=== PATIENT | male | born 1935 | race Caucasian/White ===

== ENCOUNTER 2019-07-19 11:31 | Inpatient (IN) | payer MEDICARE ==
[2019-07-19 12:23] LABS: ABS Basophils 0.1 10^3/ul (0-0.2); ABS Lymphocytes 0.4 10^3/ul (1.0-4.8); ABS Monocytes 1.1 10^3/ul (0-0.8); ABS Neutrophils 8.4 10^3/ul (1.5-7.7); Eosinophil % 0.2 %; Hematocrit 39 % (42-52); Hemoglobin 13.1 g/dL (14.0-18.0); Lymphocyte % 4.1 %; Mean Corpuscular HGB Conc 34 g/dL (31-36); Mean Corpuscular Hemoglobin 32 pg (27-31); Mean Corpuscular Volume 94 fL (80-94); Mean Platelet Volume 8.5 fL (7.4-10.4); Platelet Count 222 10^3/uL (150-450); Red Blood Count 4.08 10^6 /uL (4.18-5.48); Red Cell Distribution Width 14 % (10-15)
--- NOTE | 2019-07-19 12:40 | ED ---
Complex/Multi-Sys Presentation - HPI Summary HPI Summary: Patient is an 84 y/o M presenting to [facility] with family for back rash, loss of appetite, confusion, difficulty with memory, balance issues, and tremors. Family reports that the patient has had a rash to his back over the past two weeks. He was evaluated by dermatology and placed on cream. Rash has been improved since. However, the patient is also reported to have been exhibiting confusion, memory loss, loss of appetite, balance issues, and worsened hand tremors. Tremors worsened over the past few days. Patient is alert and oriented x3 in the room, but the family states that the patient has been having difficulty remembering phone numbers that he typically has no trouble remembering. No Hx of memory issues noted, no Hx of UTI, PNA, or infections reported. Family also states that the patient experienced a fall a few days ago. They state that the patient had complaints of back pain but in the room patient denies any back pain presently. Minimal diarrhea is also reported. PMHx of cardiac disease is reported. No cigarette, alcohol, and substance usage reported. Home medications and allergies are reviewed. Home Medications Medication Instructions Recorded Confirmed Type Flaxseed Oil 1 cap PO BID 01/13/16 02/02/16 History Isosorbide Dinitrate TAB* [Isordil 20 mg PO BID 01/13/16 02/02/16 History TAB*] Legatrin 1 tab PO BEDTIME 01/13/16 02/02/16 History Multivitamin [Multivitamins] 1 cap PO QAM 01/13/16 02/02/16 History Zolpidem Tartrate [Ambien] 0.25 mg PO BEDTIME 01/13/16 02/02/16 History Docusate CAP* [Colace Cap*] 100 mg PO BID #60 cap 01/29/16 02/02/16 Rx oxyCODONE/Acetamin 5/325 MG* 1 tab PO Q3H PRN #90 tab MDD 10 01/29/16 02/02/16 Rx [Percocet 5/325 TAB*] Apixaban* [Eliquis*] 5 mg PO BID #60 tab 02/03/16 Rx Apixaban* [Eliquis*] 10 mg PO BID #13 tab 02/03/16 Rx cephALEXin [Keflex] 500 mg PO Q6HR #28 cap 02/03/16 Rx - History Of Current Complaint Chief Complaint: EDGeneral Time Seen by Provider: 07/19/19 11:46 Hx Obtained From: Patient Onset/Duration: Still Present Timing: Constant Location: Pain At: - family reports patient had pain at back, patient denies back pain Associated Signs And Symptoms: Positive: Confusion, Diarrhea, Back Pain, Decreased Oral Intake, Other - positive - difficulty with memory, balance issues , termors, fall - Allergies/Home Medications Allergies/Adverse Reactions: Allergies Allergy/AdvReac Type Severity Reaction Status Date / Time Latex, Natural Rubber Allergy Mild Rash Verified 07/19/19 14:08 MANY FRUITS Allergy Severe SWELLING/PRICKLY Uncoded 07/19/19 11:39 THROAT & RUNNY NOSE SEASONAL ALLERGIES Allergy Intermediate Runny Nose Uncoded 07/19/19 11:39 Home Medications: Home Medications Isosorbide Dinitrate TAB* [Isordil TAB*] 20 mg PO BID 01/13/16 [History Confirmed 07/19/19] Legatrin 1 tab PO BEDTIME 01/13/16 [History Confirmed 07/19/19] Multivitamin [Multivitamins] 1 cap PO DAILY 01/13/16 [History Confirmed 07/19/19 ] Zolpidem Tartrate [Ambien] 10 mg PO BEDTIME MDD 1 tab 01/13/16 [History Confirmed 07/19/19] Fexofenadine (NF) [Janny 180 (NF)] 180 mg PO DAILY 07/19/19 [History Confirmed 07/19/19] NIFEdipine ER TAB* [Procardia Xl TAB*] 90 mg PO DAILY 07/19/19 [History Confirmed 07/19/19] Naproxen TAB* [Naprosyn 250 mg TAB*] 500 mg PO BID 07/19/19 [History Confirmed 07/19/19] Primidone 50 mg TAB (*) [Mysoline 250 mg TAB (*)] 150 mg PO DAILY 07/19/19 [ History Confirmed 07/19/19] PMH/Surg Hx/FS Hx/Imm Hx Endocrine/Hematology History: Denies: Hx Diabetes Cardiovascular History: Reports: Hx Coronary Artery Disease, Hx Hypertension, Hx Valvular Heart Disease Denies: Hx Pacemaker/ICD, Hx Rheumatic Fever Respiratory History: Denies: Hx Asthma, Hx Chronic Obstructive Pulmonary Disease (COPD) History: Denies: Hx Renal Disease Musculoskeletal History: Reports: Hx Arthritis Sensory History: Reports: Hx Contacts or Glasses Denies: Hx Hearing Aid Opthamlomology History: Reports: Hx Contacts or Glasses Neurological History: Reports: Hx Nerve Disease - ESSENTIAL TREMORS Psychiatric History: Denies: Hx Panic Disorder - Surgical History Surgery Procedure, Year, and Place: Rt KNEE - REPAIR TORN LIGAMENT [facility]. Lt SHOULDER - REPAIR [facility]. HERNIA - REPAIR [facility]. ARTHROSCOPIC RIGHT KNEE [facility] Hx Anesthesia Reactions: No Infectious Disease History: No Infectious Disease History: Denies: Traveled Outside the [place] in Last 30 Days - Family History Known Family History: Positive: Cardiac Disease - Social History Alcohol Use: None Substance Use Type: Reports: None Smoking Status (MU): Never Smoked Tobacco Review of Systems Constitutional: Other - positive - tremors Gastrointestinal: Other - positive - loss of appetite Positive: Diarrhea Musculoskeletal: Other - positive - fall, back pain Positive: Rash Neurological/Mental Status: Other - positive - confusion, difficulty memory, balance issues All Other Systems Reviewed And Are Negative: Yes Physical Exam - Summary Physical Exam Summary: Constitutional: Well-developed, Well-nourished, Alert. (-) Distressed Skin: Warm, Dry HENT: Normocephalic; Atraumatic Eyes: Conjunctiva normal Neck: Musculoskeletal ROM normal neck. (-) JVD, (-) Stridor, (-) Nuchal rigidity Cardio: Rhythm regular, rate normal, Heart sounds normal; Intact distal pulses; Radial pulses are 2+ and symmetric. (-) Murmur Pulmonary/Chest wall: Effort normal. (-) Respiratory distress, (-) Wheezes, (-) Rales Abd: Soft, (-) tenderness, (-) Distension, (-) Guarding, (-) Rebound Musculoskeletal: (+) Paraspinal Cervical Spine Tenderness (-) Edema Lymph: (-) Cervical adenopathy Neuro: Alert, Oriented x3 Psych: Mood and affect Normal Triage Information Reviewed: Yes Vital Signs On Initial Exam: Initial Vitals Temp Pulse Resp BP Pulse Ox 100.6 F 80 16 132/93 94 07/19/19 11:33 07/19/19 11:33 07/19/19 11:33 07/19/19 11:33 07/19/19 11:33 Vital Signs Reviewed: Yes - [place] Coma Scale Best Eye Response: 4 - Spontaneous Best Motor Response: 6 - Obeys Commands Best Verbal Response: 5 - Oriented Coma Scale Total: 15 Procedures - Sedation Patient Received Moderate/Deep Sedation with Procedure: No Diagnostics - Vital Signs Vital Signs Temp Pulse Resp BP Pulse Ox 07/19/19 11:33 100.6 F 80 16 132/93 94 - Laboratory Result Diagrams: 07/19/19 12:13 07/19/19 12:13 Lab Statement: Any lab studies that have been ordered have been reviewed, and results considered in the medical decision making process. - Radiology PELVIS X-RAY Radiology Interpretation Completed By: Radiologist Summary of Radiographic Findings: PELVIS X-RAY IMPRESSION: NO EVIDENCE FOR FRACTURE, IF THE PATIENT'S SYMPTOMS PERSIST RECOMMEND. FOLLOW-UP IMAGING. THIS REPORT WAS REVIEWED BY ED PHYSICIAN. CXR Radiology Interpretation Completed By: Radiologist Summary of Radiographic Findings: CXR IMPRESSION: COPD. THERE IS PATCHY AIRSPACE DISEASE OF THE RIGHT LUNG BASE. THIS REPORT WAS REVIEWED BY ED PHYSICIAN. - CT BRAIN CT CT Interpretation Completed By: Radiologist Summary of CT Findings: BRAIN CT IMPRESSION: 1. Left posterior scalp hematoma with an intact subjacent calvarium. 2. No acute intracranial abnormality. 3. Mild chronic small vessel ischemic disease is likely. 4. Mild cerebral volume loss. THIS REPORT WAS REVIEWED BY ED PHYSICIAN. - EKG 1315 Cardiac Rate: NL - rate of 80 BPM EKG Rhythm: Sinus Rhythm Summary of EKG Findings: EKG showed NSR with rate of 80 BPM, T-wave inversion in lead III, EKG with significant artifact. ED physician has reviewed and interpreted this EKG. Complex Multi-Symp Course/Dx Course Of Treatment: 84 y/o M p/w weakness, fatigue and headache. - PE well appearing, bilateral rhonchi. No cspine TTP. - check a head CT given fall. We' ll also check labs to workup infectious causes. Chest x-ray shows a right lower lobe pneumonia, given Zithromax and ceftriaxone. Urinalysis pending. We' ll also send flu. Given patient's weakness and age will admit for pneumonia. - Diagnoses Provider Diagnoses: PNA (pneumonia), Weakness - Physician Notifications Discussed Care Of Patient With: Germain Blackwell Time Discussed With Above Provider: 13:40 Instructed by Provider To: Other - Patient's case was discussed with Dr. Blackwell, Dr. Blackwell accepts for admission Discharge ED - Sign-Out/Discharge Documenting (check all that apply): Patient Departure - admit - Discharge Plan Condition: Stable Disposition: ADMITTED TO [facility] Referrals: Luca Sanford MD [Primary Care Provider] - - Billing Disposition and Condition Condition: STABLE Disposition: Admitted to [facility] - Attestation Statements Document Initiated by Petersonibe: Yes Documenting Scribe: SANDIE PECK Provider For Whom Scribe is Documenting (Include Credential): CARRINGTON JIMÉNEZ MD Scribe Attestation: SANDIE Moreno, scribed for CARRINGTON JIMÉNEZ MD on 07/19/19 at 1430. Scribe Documentation Reviewed: Yes Provider Attestation: The documentation as recorded by the SANDIE lim accurately reflects the service I personally performed and the decisions made by CARRINGTON ramirez MD Status of Scribe Document: Viewed
[2019-07-19 12:51] LABS: ALT 23 U/L (7-52); AST 31 U/L (13-39); Albumin 3.7 g/dL (3.2-5.2); Alkaline Phosphatase 78 U/L (34-104); Anion Gap 6 mmol/L (2-11); BUN/Creatinine Ratio 24.3 (8-20); Blood Urea Nitrogen 26 mg/dL (6-24); CO2 Carbon Dioxide 30 mmol/L (22-32); Calcium 9.2 mg/dL (8.6-10.3); Chloride 98 mmol/L (101-111); EGFR African American 79.7 (>60); EGFR Non-African American 65.8 (>60); Globulin 3.6 g/dL (2-4); Glucose 116 mg/dL (70-100); Magnesium 2.4 mg/dL (1.9-2.7); Potassium 4.3 mmol/L (3.5-5.0); Sodium 134 mmol/L (135-145); Total Protein 7.3 g/dL (6.4-8.9)
[2019-07-19 12:55] LABS: Troponin I 0.03 ng/mL (<0.03)
[2019-07-19] MEDS ORDERED: cefTRIAXone(*) 1 GM in NS 0.9% 50 ML* 50 ML IVPB ONE (13:23)
[2019-07-19] MEDS ORDERED: Azithromycin 500 mg/250 ml NS 500 MG/250 ML BAG IVPB ONE (13:23)
[2019-07-19] MEDS ORDERED: Acetaminophen TAB* 325 MG PO ONE (13:23)
[2019-07-19 14:30] LABS: Influenza A Molecular Negative (Negative); Influenza B Molecular Negative (Negative)
[2019-07-19 14:51] LABS: Urine Appearance Clear; Urine Bilirubin Negative (Negative); Urine Blood 1+ (Negative); Urine Color Yellow; Urine Glucose Negative (Negative); Urine Ketones Trace (Negative); Urine Nitrite Negative (Negative); Urine Protein Negative (Negative); Urine Urobilinogen Negative (Negative)
[2019-07-19 14:58] LABS: Urine Bacteria Absent (Absent); Urine Red Blood Cell 1+(3-5/hpf) (Absent); Urine Squamous Epithelial Cell Present (Absent); Urine White Blood Cell Trace(0-5/hpf) (Absent)
[2019-07-19] MEDS: Azithromycin 500 mg/250 ml NS 500 MG/250 ML BAG IVPB SCH (15:55)
[2019-07-19] MEDS: Enoxaparin(*) 40 MG/0.4 ML SYR SUBCUT SCH ×2 (15:57→16:04)
--- NOTE | 2019-07-19 19:56 | HP ---
CC: Dr. Sanford; Dr. Richey ADMISSION HISTORY AND PHYSICAL: DATE OF ADMISSION: 07/19/19 CHIEF COMPLAINT: Weakness. HISTORY OF PRESENT ILLNESS: Mr. Jones is an 84-year-old man with history of coronary artery disea se, who comes in with family reporting 1 to 2 weeks of weakness and difficulty with balance. They mas ve also noted memory lapses, but he has no history of dementia. At times, he appears confused. He d enies any cough, shortness of breath, or chest pain. He had a fall approximately 10 days ago, outdo ors getting wood, under unclear circumstances, no one really witnessed this and he could not tell whe n this happened. He reported fall and head injury to the ER doctor and this led to a head CT and x-r ays of the bilateral hips and pelvis. The patient has had myalgias in the last several days and chills. He also had a rash on his back abo ut a week ago, it was itchy and bothering him. He saw a live source operator and was given a topical moistu rizer cream and this has been resolving. He denies being told he had shingles. He does have some lo w back pain, which is chronic. PAST MEDICAL HISTORY: Includes hypertension, coronary artery disease demonstrated on cardiac cathete rization in 1998 with no intervention. He has insomnia, essential tremor and history of DVT, right c naomi postop. PAST SURGICAL HISTORY: In December 2015, he had a right total knee replacement, he also had inguinal h ernia repair in the past. MEDICATIONS ON ADMISSION: 1. Janny 180 mg p.o. daily. 2. Isosorbide dinitrate 20 mg p.o. b.i.d. 3. Legatrin 1 tab p.o. q.p.m. 4. Multivitamin 1 tab p.o. daily. 5. Naproxen 500 mg p.o. b.i.d. 6. Nifedipine ER 90 mg p.o. daily. 7. Primidone 150 mg p.o. daily. 8. Zolpidem 10 mg p.o. q.h.s. ALLERGIES: SIMVASTATIN and LATEX. FAMILY HISTORY: Notable for mother of old age. Father at his 60s of heart disease. He mas s 2 sisters who are okay, alive and well. 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 He is . He has 2 sons. He has never smoked. He drinks alcohol rarely. No recreational drugs. REVIEW OF SYSTEMS: The patient denies any anorexia, weight loss. The patient denies any chest pain or palpitations. The patient denies any cough, hemoptysis, or shortness of breath. The patient does admit to some leg cramps at night, which have been quite bothersome. Otherwise 14-point review of s ystem is negative other than above mentioned in the HPI. PHYSICAL EXAMINATION GENERAL: He is alert, in no acute distress. VITAL SIGNS: Temperature is 38.2, pulse 80, respirations 16, blood pressure 132/93, O2 sat 94% on ro om air. HEENT: Head is normocephalic atraumatic. Sclerae anicteric. Pupils are equal, round and reactive t o light and accommodation. Oropharynx is moist. No lesions. NECK: No JVD. No carotid bruit. No thyromegaly. LUNGS: Clear to auscultation and percussion in the upper field, but there are rales at the bases presley aterally. HEART: Regular rate and rhythm without murmurs or gallops. ABDOMEN: Soft, nontender, positive bowel sounds. No hepatosplenomegaly. EXTREMITIES: No peripheral edema. Dorsalis pedis pulses are 1+ bilaterally. NEUROLOGIC: Cranial nerves II through XII were intact. Motor strength is 5/5 throughout. Deep tend on reflexes are symmetric. He is alert and oriented x3, but he has vague responses to some questions about his recent history. DIAGNOSTIC STUDIES/LAB DATA: Sodium 134, potassium 4.3, chloride 98, bicarb 30, BUN 26, creatinine 1.07, glucose 116, calcium 9.2, magnesium 3.4, albumin 3.7. AST is 31, ALT 23, bilirubin 0.5. White count is 10.0, hemoglobin 13.1, hematocrit 39%, platelets are 222. Influenza swab is negative. Tro ponin is 0.03, ammonia is 41. Chest x-ray shows a right middle lobe infiltrate. Head CT is negative for infarct or hemorrhage. Pe lvic x-ray is negative for fracture with some osteoarthritis of course. ASSESSMENT AND PLAN: A 84-year-old man presenting with weakness and fever with infiltrate on chest x -ray. He appears to have community-acquired pneumonia. He will be admitted to the hospital due to h is weakness and falls and treated for community-acquired pneumonia and we will also cover atypicals i ncluding mycoplasma. He can be started on ceftriaxone and azithromycin and we will narrow coverage if possible Weakness, this is likely due to pneumonia, not stroke. We will have physical therapy assessment and will expect him to improve in strength as his infectious disease is treated. Coronary artery disease appears stable, although his troponin is mildly elevated. He will be monitore d on telemetry and will have him repeat troponins. Code status: DNR/DNI. We will look for his MOLST form and update that if necessary. DVT prophylaxis: He is at high risk given his history of DVT in his age. He will be on subcutaneous Lovenox while he is here in the hospital. [id number]/[facility] #: [id number]
[2019-07-19 20:46] LABS: Troponin I 0.03 ng/mL (<0.03)
[2019-07-19] MEDS: Isosorbide Dinitrate TAB* 20 MG PO SCH (20:52)
[2019-07-19] MEDS: Naproxen TAB* 250 MG PO SCH (20:52)
[2019-07-19] MEDS: Zolpidem TAB* 10 MG PO SCH (20:52)
[2019-07-20 01:01] LABS: Troponin I 0.03 ng/mL (<0.03)
[2019-07-20 06:20] LABS: ABS Eosinophils 0.1 10^3/ul (0-0.6); ABS Lymphocytes 0.5 10^3/ul (1.0-4.8); ABS Monocytes 1.2 10^3/ul (0-0.8); Hematocrit 36 % (42-52); Hemoglobin 12.3 g/dL (14.0-18.0); Lymphocyte % 5.1 %; Mean Corpuscular HGB Conc 35 g/dL (31-36); Mean Corpuscular Hemoglobin 32 pg (27-31); Mean Corpuscular Volume 94 fL (80-94); Mean Platelet Volume 8.7 fL (7.4-10.4); Platelet Count 210 10^3/uL (150-450); Red Blood Count 3.78 10^6 /uL (4.18-5.48); Red Cell Distribution Width 14 % (10-15); White Blood Count 9.8 10^3/uL (3.5-10.8)
[2019-07-20 06:36] LABS: BUN/Creatinine Ratio 24.3 (8-20); Calcium 8.3 mg/dL (8.6-10.3); EGFR African American 79.7 (>60); EGFR Non-African American 65.8 (>60)
[2019-07-20] MEDS: Isosorbide Dinitrate TAB* 20 MG PO SCH ×2 (08:53→22:19)
[2019-07-20] MEDS: Naproxen TAB* 250 MG PO SCH ×2 (08:53→22:03)
[2019-07-20] MEDS: Primidone 50 mg TAB (*) PO SCH (08:53)
[2019-07-20] MEDS: NIFEdipine ER TAB* 30 MG PO SCH (08:54)
--- NOTE | 2019-07-20 12:20 | PN ---
Subjective Date of Service: 07/20/19 Interval History: Patient denies dyspnea, cough. He did not remember that I told him about pneumonia yesterday. He has walked to bathroom w/ assist. He still cannot clearly remember recent fall. He now says he fell 6-8 weeks ago , injured RT thigh for 5-6 weeks. Then fell again more recently. Family History: Unchanged from Admission Social History: Unchanged from Admission Past Medical History: Unchanged from Admission Objective Active Medications: Enoxaparin Sodium (Lovenox(*)) 40 mg SUBCUT Q24H [facility] Last Admin: 07/19/19 16:04 Dose: Not Given Azithromycin (Zithromax 500 Mg/250 Ml) 500 mg in 250 mls @ 250 mls/hr IVPB Q24H [facility] Last Admin: 07/19/19 15:55 Dose: 250 mls/hr Ceftriaxone Sodium 1,000 mg/ (Sodium Chloride) 50 mls @ 200 mls/hr IVPB Q24H [facility] Isosorbide Dinitrate (Isordil Tab*) 20 mg PO BID [facility] Last Admin: 07/20/19 08:53 Dose: 20 mg Naproxen (Naprosyn Tab*) 500 mg PO BID [facility] Last Admin: 07/20/19 08:53 Dose: 500 mg Nifedipine (Procardia Xl Tab*) 90 mg PO DAILY [facility] Last Admin: 07/20/19 08:54 Dose: 90 mg Primidone (Mysoline 250 Mg Tab (*)) 150 mg PO DAILY [facility] Last Admin: 07/20/19 08:53 Dose: 150 mg Zolpidem Tartrate (Ambien Tab*) 10 mg PO BEDTIME [facility] Last Admin: 07/19/19 20:52 Dose: 10 mg Vital Signs - 8 hr 07/20/19 07/20/19 07/20/19 07:15 08:00 11:15 Temperature 36.9 C 37.3 C Pulse Rate 63 78 Respiratory 24 18 24 Rate Blood Pressure 125/66 116/56 (mmHg) O2 Sat by Pulse 93 91 Oximetry Oxygen Devices in Use Now: None Appearance: alert, no distress Eyes: No Scleral Icterus Ears/Nose/Mouth/Throat: NL Teeth, Lips, Gums Neck: NL Appearance and Movements; NL JVP Respiratory: Symmetrical Chest Expansion and Respiratory Effort, - - rales RT base Cardiovascular: RRR, - - 1/6 systolic murmur Abdominal: NL Sounds; No Tenderness; No Distention Neurological: Alert and Oriented x 3 Lines/Tubes/Other Access: Clean, Dry and Intact Peripheral IV Nutrition: Taking PO's Result Diagrams: 07/20/19 05:14 07/20/19 05:14 Additional Lab and Data: Laboratory Tests 07/19/19 07/19/19 07/20/19 17:16 20:16 00:33 Troponin I 0.02 0.03 H* 0.03 H* Microbiology and Other Data: Microbiology 07/19/19 14:30 Nasal Screen MRSA (PCR) - Final Nasal Mrsa Detected Assess/Plan/Problems-Billing Assessment: 84 year old w/ falls, delirium, appears due to RLL pneumonia - Patient Problems (1) Lobar pneumonia, unspecified organism Current Visit: Yes Status: Acute Priority: High Code(s): J18.1 - LOBAR PNEUMONIA, UNSPECIFIED ORGANISM SNOMED Code(s): 073797434 Comment: -Had few symptoms of pneumonia, difficult to follow clinically -Continue azithromycin, ceftriaxone -Checking urine legionella and pneumococcus Ag. (2) Repeated falls Current Visit: Yes Status: Acute Priority: Medium Code(s): R29.6 - REPEATED FALLS SNOMED Code(s): 521544145 Comment: -Physical therapy assessment pending -Suspect weakness due to pneumonia (3) Delirium due to another medical condition Current Visit: Yes Status: Acute Priority: Medium Code(s): F05 - DELIRIUM DUE TO KNOWN PHYSIOLOGICAL CONDITION SNOMED Code(s): 6311377 Comment: -At this age, may have element of dementia unmasked -Treatment of infection should improve mental status- -Appears hypoactive not agitated Status and Disposition: inpatient
[2019-07-20 12:57] LABS: TSH (Thyroid Stimulating Horm) 1.74 mcIU/mL (0.34-5.60)
[2019-07-20 12:59] LABS: Free T4 1.11 ng/dL (0.61-1.12)
[2019-07-20] MEDS: cefTRIAXone VIAL(*) 1,000 MG in NS 0.9% 50 ML* 50 ML IVPB SCH (13:41)
[2019-07-20] MEDS: Enoxaparin(*) 40 MG/0.4 ML SYR SUBCUT SCH (13:42)
[2019-07-20] MEDS: Azithromycin 500 mg/250 ml NS 500 MG/250 ML BAG IVPB SCH (15:02)
[2019-07-20] MEDS: Zolpidem TAB* 10 MG PO SCH (22:04)
[2019-07-21] MEDS: Hydrocortisone 1% CREAM* 30 GM TUBE TOPICAL SCH ×2 (08:12→20:10)
[2019-07-21] MEDS: Naproxen TAB* 250 MG PO SCH ×2 (08:12→20:09)
[2019-07-21] MEDS: NIFEdipine ER TAB* 30 MG PO SCH (08:12)
[2019-07-21] MEDS: Primidone 50 mg TAB (*) PO SCH (08:12)
[2019-07-21] MEDS: Isosorbide Dinitrate TAB* 20 MG PO SCH ×2 (08:13→20:10)
--- NOTE | 2019-07-21 09:07 | PN ---
Subjective Date of Service: 07/21/19 Interval History: Mr. Jones still does not recall that he is here for pneumonia. Thinks it is for "an itching problem," but has trouble elaborating on his itchiness. When I remind him that he has pneumonia he recognizes that. He has no other complaints . Family History: Unchanged from Admission Social History: Unchanged from Admission Past Medical History: Unchanged from Admission Objective Active Medications: Enoxaparin Sodium (Lovenox(*)) 40 mg SUBCUT Q24H [facility] Last Admin: 07/20/19 13:42 Dose: Not Given Hydrocortisone (Hytone Cream 1%*) 1 applic TOPICAL BID [facility] Last Admin: 07/21/19 08:12 Dose: 1 applic Azithromycin (Zithromax 500 Mg/250 Ml) 500 mg in 250 mls @ 250 mls/hr IVPB Q24H [facility] Last Admin: 07/20/19 15:02 Dose: 250 mls/hr Ceftriaxone Sodium 1,000 mg/ (Sodium Chloride) 50 mls @ 200 mls/hr IVPB Q24H [facility] Last Admin: 07/20/19 13:41 Dose: 200 mls/hr Isosorbide Dinitrate (Isordil Tab*) 20 mg PO BID [facility] Last Admin: 07/21/19 08:13 Dose: 20 mg Naproxen (Naprosyn Tab*) 500 mg PO BID [facility] Last Admin: 07/21/19 08:12 Dose: 500 mg Nifedipine (Procardia Xl Tab*) 90 mg PO DAILY [facility] Last Admin: 07/21/19 08:12 Dose: 90 mg Primidone (Mysoline 250 Mg Tab (*)) 150 mg PO DAILY [facility] Last Admin: 07/21/19 08:12 Dose: 150 mg Zolpidem Tartrate (Ambien Tab*) 10 mg PO BEDTIME [facility] Last Admin: 07/20/19 22:04 Dose: 10 mg Vital Signs - 8 hr 07/21/19 07/21/19 03:15 07:15 Temperature 98.3 F 98.2 F Pulse Rate 67 68 Respiratory 20 24 Rate Blood Pressure 120/63 139/70 (mmHg) O2 Sat by Pulse 90 92 Oximetry Oxygen Devices in Use Now: None Appearance: alert, well appearing, eating breakfast Eyes: No Scleral Icterus Ears/Nose/Mouth/Throat: NL Teeth, Lips, Gums, Mucous Membranes Moist Neck: NL Appearance and Movements; NL JVP Respiratory: Symmetrical Chest Expansion and Respiratory Effort, Clear to Auscultation, - - few rhonchi in the right base Cardiovascular: NL Sounds; No Murmurs; No JVD, RRR Abdominal: NL Sounds; No Tenderness; No Distention Lymphatic: No Cervical Adenopathy Extremities: No Edema Skin: No Rash or Ulcers Neurological: NL Muscle Strength and Tone Result Diagrams: 07/20/19 05:14 07/20/19 05:14 Additional Lab and Data: Laboratory Tests 07/19/19 07/19/19 07/20/19 17:16 20:16 00:33 Troponin I 0.02 0.03 H* 0.03 H* Microbiology and Other Data: Microbiology 07/19/19 14:30 Nasal Screen MRSA (PCR) - Final Nasal Mrsa Detected Assess/Plan/Problems-Billing Assessment: 84 year old w/ falls, delirium, appears due to RLL pneumonia - Patient Problems (1) Lobar pneumonia, unspecified organism Current Visit: Yes Status: Acute Priority: High Code(s): J18.1 - LOBAR PNEUMONIA, UNSPECIFIED ORGANISM SNOMED Code(s): 061028832 Comment: -Had few symptoms of pneumonia, difficult to follow clinically -Continue azithromycin, ceftriaxone (day 3) -Legionella and S. pneumo antigens are negative (2) Delirium due to another medical condition Current Visit: Yes Status: Acute Priority: Medium Code(s): F05 - DELIRIUM DUE TO KNOWN PHYSIOLOGICAL CONDITION SNOMED Code(s): 7128193 Comment: -At this age, may have element of dementia unmasked -Treatment of infection should improve mental status- -Appears hypoactive not agitated -I am wary of the zolpidem he is on as a home med; will try to cut in half tonight (3) Repeated falls Current Visit: Yes Status: Acute Priority: Medium Code(s): R29.6 - REPEATED FALLS SNOMED Code(s): 319826925 Comment: -Physical therapy assessment pending -Suspect weakness due to pneumonia (4) Hypertension Current Visit: No Status: Chronic Code(s): I10 - ESSENTIAL (PRIMARY) HYPERTENSION SNOMED Code(s): 91948293 Comment: continue nifedipine and imdur Status and Disposition: inpatient, awaiting PT consult for dispo planning
[2019-07-21] MEDS: cefTRIAXone VIAL(*) 1,000 MG in NS 0.9% 50 ML* 50 ML IVPB SCH (15:07)
[2019-07-21] MEDS: Enoxaparin(*) 40 MG/0.4 ML SYR SUBCUT SCH (15:07)
[2019-07-21] MEDS: Azithromycin 500 mg/250 ml NS 500 MG/250 ML BAG IVPB SCH (15:50)
[2019-07-21] MEDS: Zolpidem TAB* 10 MG PO SCH (21:44)
[2019-07-21 22:44] LABS: BUN/Creatinine Ratio 27.9 (8-20); Calcium 8.2 mg/dL (8.6-10.3); EGFR African American 102.5 (>60); EGFR Non-African American 84.7 (>60); Magnesium 2.3 mg/dL (1.9-2.7); Potassium 3.9 mmol/L (3.5-5.0)
[2019-07-22] MEDS: Primidone 50 mg TAB (*) PO SCH (10:54)
[2019-07-22] MEDS: Isosorbide Dinitrate TAB* 20 MG PO SCH ×2 (10:54→19:57)
[2019-07-22] MEDS: Naproxen TAB* 250 MG PO SCH ×2 (10:54→19:57)
[2019-07-22] MEDS: NIFEdipine ER TAB* 30 MG PO SCH (10:54)
[2019-07-22] MEDS: Hydrocortisone 1% CREAM* 30 GM TUBE TOPICAL SCH ×2 (11:25→21:54)
--- NOTE | 2019-07-22 12:21 | PN ---
Subjective Date of Service: 07/22/19 Interval History: Pt is seen with his son by the bedside. Pt requests multiple times to go home today, son is not encouraging him to do so, but agrees that pt could go home tomorrow to stay with his and "another woman who lives with them ". Family History: Unchanged from Admission Social History: Unchanged from Admission Past Medical History: Unchanged from Admission Objective Active Medications: Enoxaparin Sodium (Lovenox(*)) 40 mg SUBCUT Q24H [facility] Last Admin: 07/21/19 15:07 Dose: 40 mg Hydrocortisone (Hytone Cream 1%*) 1 applic TOPICAL BID [facility] Last Admin: 07/22/19 11:25 Dose: 1 applic Azithromycin (Zithromax 500 Mg/250 Ml) 500 mg in 250 mls @ 250 mls/hr IVPB Q24H [facility] Last Admin: 07/21/19 15:50 Dose: 250 mls/hr Ceftriaxone Sodium 1,000 mg/ (Sodium Chloride) 50 mls @ 200 mls/hr IVPB Q24H [facility] Last Admin: 07/21/19 15:07 Dose: 200 mls/hr Isosorbide Dinitrate (Isordil Tab*) 20 mg PO BID [facility] Last Admin: 07/22/19 10:54 Dose: 20 mg Naproxen (Naprosyn Tab*) 500 mg PO BID [facility] Last Admin: 07/22/19 10:54 Dose: 500 mg Nifedipine (Procardia Xl Tab*) 90 mg PO DAILY [facility] Last Admin: 07/22/19 10:54 Dose: 90 mg Primidone (Mysoline 250 Mg Tab (*)) 150 mg PO DAILY [facility] Last Admin: 07/22/19 10:54 Dose: 150 mg Zolpidem Tartrate (Ambien Tab*) 10 mg PO BEDTIME [facility] Last Admin: 07/21/19 21:44 Dose: 10 mg Vital Signs - 8 hr 07/22/19 07/22/19 07/22/19 07:15 08:00 11:15 Temperature 98.6 F 98.9 F Pulse Rate 68 81 Respiratory 26 26 26 Rate Blood Pressure 148/70 144/61 (mmHg) O2 Sat by Pulse 96 86 Oximetry Oxygen Devices in Use Now: None Appearance: 84 yo M in nAD, AAOx2 Eyes: No Scleral Icterus, PERRLA Ears/Nose/Mouth/Throat: NL Teeth, Lips, Gums, Mucous Membranes Moist Neck: NL Appearance and Movements; NL JVP Respiratory: Symmetrical Chest Expansion and Respiratory Effort, - - faint bibasiliar crackles Cardiovascular: NL Sounds; No Murmurs; No JVD, RRR Abdominal: NL Sounds; No Tenderness; No Distention Lymphatic: No Cervical Adenopathy Extremities: No Edema Skin: No Rash or Ulcers, No Nodules or Sclerosis Neurological: Alert and Oriented x 3, NL Muscle Strength and Tone Result Diagrams: 07/20/19 05:14 07/21/19 22:22 Additional Lab and Data: Laboratory Tests 07/19/19 07/19/19 07/20/19 17:16 20:16 00:33 Troponin I 0.02 0.03 H* 0.03 H* Microbiology and Other Data: Microbiology 07/19/19 14:30 Nasal Screen MRSA (PCR) - Final Nasal Mrsa Detected Assess/Plan/Problems-Billing Assessment: 84 year old w/ falls, delirium, appears due to RLL pneumonia - Patient Problems (1) Delirium due to another medical condition Comment: -At this age, may have element of dementia unmasked -Treatment of infection improved his mental state -PT eval from yesterday advises skilled PT, but today pt walked well with walker. awaiting PT eval today (2) Lobar pneumonia, unspecified organism Comment: -Had few symptoms of pneumonia, difficult to follow clinically -Continue azithromycin, ceftriaxone (day 4) -Legionella and S. pneumo antigens are negative -still hypoxemic and failed wean off 02 today, hopefully can be weaned off tomorrow and then d/c home (3) Repeated falls Comment: -Physical therapy assessment pending -Suspect weakness due to pneumonia (4) Essential tremor Comment: Continue primidone. (5) Hypertension Comment: continue nifedipine and imdur (6) DVT prophylaxis Comment: lovenox Status and Disposition: inpatient, awaiting PT consult for dispo planning
[2019-07-22] MEDS: cefTRIAXone VIAL(*) 1,000 MG in NS 0.9% 50 ML* 50 ML IVPB SCH (14:12)
[2019-07-22] MEDS: Enoxaparin(*) 40 MG/0.4 ML SYR SUBCUT SCH (14:12)
[2019-07-22] MEDS: Azithromycin 500 mg/250 ml NS 500 MG/250 ML BAG IVPB SCH (16:04)
[2019-07-22] MEDS: Zolpidem TAB* 10 MG PO SCH (21:54)
[2019-07-22] MEDS ORDERED: Acetaminophen TAB* 325 MG PO PRN (22:52)
[2019-07-23] MEDS: Naproxen TAB* 250 MG PO SCH (08:33)
[2019-07-23] MEDS: NIFEdipine ER TAB* 30 MG PO SCH (08:34)
[2019-07-23] MEDS: Isosorbide Dinitrate TAB* 20 MG PO SCH (08:34)
[2019-07-23] MEDS: Primidone 50 mg TAB (*) PO SCH (08:35)
[2019-07-23] MEDS: Hydrocortisone 1% CREAM* 30 GM TUBE TOPICAL SCH (08:37)
[2019-07-23 10:23] VITALS: BP 118/60
--- NOTE | 2019-07-23 12:37 | DS ---
CC: Dr. Sanford * DISCHARGE SUMMARY: DATE OF ADMISSION: 07/19/19 DATE OF DISCHARGE: 07/23/19 PRIMARY CARE PROVIDER: Dr. Sanford. DISPOSITION AT DISCHARGE: Home. CONDITION ON DISCHARGE: Stable. DISCHARGE DIAGNOSES: 1. Pneumonia. 2. Delirium due to the above-mentioned infection. SECONDARY DIAGNOSES: 1. Hypertension. 2. Coronary artery disease. 3. History of essential tremor. 4. History of deep venous thrombosis. MEDICATIONS AT DISCHARGE: Include: 1. Cefdinir 300 mg p.o. b.i.d. for a total of 4 days to complete total of 7 days treatment and then stop. 2. Azithromycin 250 mg daily for a total of 2 days to complete a total of 5 days treatment that is together with his treatment at the hospital. The remaining medications are unchanged and include: 1. Janny 180 mg daily. 2. Imdur 20 mg b.i.d. 3. Legatrin 1 tablet at bedtime p.r.n. 4. Multivitamin 1 tablet daily. 5. Naproxen 500 mg b.i.d. p.r.n. 6. Procardia XL 90 mg daily. 7. Primidone 150 mg daily. 8. Ambien 10 mg at bedtime p.r.n. LABORATORY DATA AND STUDIES PERFORMED DURING THE HOSPITAL STAY: Included: The patient's TSH was 1.74 on 07/20/19. On 07/21/19, sodium 135, potassium 3.9, chloride 101, carbon dioxide 28, BUN 24, creatinine 0.86. Liver function tests obtained at admission were unremarkable. The patient's troponin ranged from 0.02 to 0.03. CBC last obtained on 07/20/19 showed white blood cell count of 9.8, hemoglobin 12.3, hematocrit 36, and platelets 210. Flu tests were negative. The patient's microbiology test showed negative Strep pneumo antigen and negative legionella antigen in the urine. MRSA was detected in the patient's nasal swab. The patient's brain CT obtained at admission, impression: "Left posterior scalp hematoma with intact subjacent calvarium. No acute intracranial abnormality. Mild chronic small vessel ischemic change. Mild cerebral volume loss." Portable chest x-ray obtained at admission, impression: "COPD. There is patchy airspace disease at the right lung base." Pelvis x-ray obtained at admission, impression: "No evidence of fracture. If the patient's symptoms persist, recommend followup imaging." HOSPITALIZATION COURSE: Matty Jones is an 84-year-old male who presented to the hospital with history of falls and altered mentation. The patient was disoriented and lethargic. He was noted to have left lung pneumonia and admitted to the hospital. He was treated with intravenous antibiotics, and over the course of the patient's hospital stay, his mentation returned to baseline. He is still rather a withdrawn historian, but he is alert and oriented x3 by the time of discharge. Initially, he was in a hypoxemic respiratory failure and required oxygen supplementation. By the time of discharge, his oxygen was discontinued and he had a trial of ambulation without oxygen and his oxygen saturations continued to be kept above 90 on room air. He underwent physical therapy evaluation and initially physical therapy recommended short-term rehabilitation, but later on the patient ambulated with a walker. I discussed it with the patient's . Apparently, they have a person/collection systems consultant who lives in with them. stated that she feels comfortable with the patient going home and to assist him with a rolling walker if necessary. [facility] nurses association was also set up for followup. The patient is going to be discharged home with recommendation to follow up with his primary care provider in 4 to 7 days. PHYSICAL EXAM AT THE TIME OF DISCHARGE: Blood pressure of 118/60, heart rate of 70 and regular, respiratory rate 18, oxygen saturation 93% on room air, temperature 98.3. General: The patient is a very pleasant 84-year-old male who is in no acute distress. Alert and oriented x2. HEENT: Head: Atraumatic , normocephalic. Eyes: Pupils equal and reactive to light and accommodation. Oropharynx is clear. Mucosa moist. Neck: Supple. No JVD. No bruits bilaterally. Cardiovascular: Regular rate and rhythm. No murmur. Respiratory : Fine crackles at bilateral bases. Abdomen: Soft and nontender. Bowel sounds are present in 4 quadrants. Lower Extremities: There is no edema. Pulses are +2 bilaterally. No clubbing or cyanosis. On neuro evaluation, speech clear. Cranial nerves II through XII grossly intact. Motor strength is 5/5 bilaterally. Please note that this is a short summary of the patient's hospitalization. Please refer to further medical records for details. TIME SPENT: Approximately 45 minutes was spent on the patient's discharge. [id number]/[facility] #: [id number] ALYSSIA
== END 2019-07-23 11:25 | disposition home health service (06) | DRG 193 ==
LOC: ED 11:31 → MED 13:55
PROVIDERS: ADMIT Internal Medicine; ATTEND Internal Medicine
DX: J18.1 Lobar pneumonia, unspecified organism (principal); J96.01 Acute respiratory failure with hypoxia; R41.0 Disorientation, unspecified; I10 Essential (primary) hypertension; I25.10 Atherosclerotic heart disease of native coronary artery without angina pectoris; J44.9 Chronic obstructive pulmonary disease, unspecified; G47.00 Insomnia, unspecified; Z66 Do not resuscitate; Z96.651 Presence of right artificial knee joint; S00.03XA Contusion of scalp, initial encounter; W18.30XA Fall on same level, unspecified, initial encounter; Z91.81 History of falling; Y92.89 Other specified places as the place of occurrence of the external cause; Z86.718 Personal history of other venous thrombosis and embolism; Z79.899 Other long term (current) drug therapy; Z88.8 Allergy status to other drugs, medicaments and biological substances; Z91.040 Latex allergy status
CPT/HCPCS: 36415; 70450; 71046; 72170; 80048; 80053; 81003; 81015; 82140; 83735; 84439; 84443; 84484; 85025; 87086; 87641; 87899; 93005; 99284; A9270-GY; J0456; J0696; J1650